=== PATIENT | female | born 1980 | race Caucasian/White ===

== ENCOUNTER 2021-03-19 23:57 | Emergency (ER) | payer OTHER ==
[~2021-03-19 23:57] MED LIST: BENTYL10 MG PO; BRINTELLIX10 MG PO; CYMBALTA 30MG C30 MG PO; FEVERFEW EXTRACT1 GM PO; FLONASE ALLER15.8 ML; MAXALT10 MG PO; PHENERGAN25 M1 PO; TROKENDI XR200 MG PO; VENTOLIN HFA IN18 GM INH; ZOFRAN8 MG PO; ZYRTEC10 MG PO
[2021-03-20 00:42] LABS: BASOPHIL 0.8 % (0-2); EOSINOPHIL 3.2 % (0-5); HCT 40.6 % (37.0-47.0); HGB 13.4 g/dl (12.5-16.0); LYMPHOCYTE 19.7 % (15-48); MCH 31.3 pg (25.0-31.0); MCV 94.9 fL (78.0-100.0); MONOCYTE 10.1 % (0-12); MPV 10.3 fL (6.0-9.5); NEUTROPHIL 65.9 % (41-80); NRBC 0; PLT 289 K/uL (150-400); RBC 4.28 M/uL (4.20-5.40); WBC 11.7 K/uL (4.0-10.5)
[2021-03-20 01:02] LABS: ALBUMIN 3.5 g/dL (3.4-5.0); BILIRUBIN - TOTAL 0.2 mg/dL (0.2-1.0); BUN/CREAT RATIO (CALC) 21.3 RATIO; CREATININE 0.89 mg/dL (0.51-0.95); GLOBULIN (CALCULATION) 3.5 g/dL; POTASSIUM 3.6 mmol/L (3.5-5.1)
[2021-03-20 02:03] LABS: BILIRUBIN NEGATIVE (NEGATIVE); BLOOD 3+ Ery/uL (NEGATIVE); CLARITY CLEAR (CLEAR); COLOR YELLOW (YELLOW); GLUCOSE (U) NORMAL (NORMAL); LEUKOCYTES NEGATIVE Leu/uL (NEGATIVE); NITRITE NEGATIVE (NEGATIVE); PROTEIN NEGATIVE (NEGATIVE); UROBILINOGEN 0.2 mg/dL (0.2-1.0)
[2021-03-20 02:10] LABS: CALCIUM OXALATE CRYSTALS MODERATE; URINARY RBC TNTC
[2021-03-20 02:11] LABS: AMORPHOUS URATES CRYSTALS MODERATE
[2021-03-20 02:12] LABS: BACTERIA TRACE
[2021-03-20 02:13] LABS: URINARY WBC RARE
[2021-03-20] MEDS ORDERED: ONDANSETRON ODT4 MG PO (04:10)
[2021-03-20] MEDS ORDERED: NAPROXEN500 MG PO (04:10)
[2021-03-20] MEDS ORDERED: FLOMAX0.4 MG PO (04:10)
[2021-03-20] MEDS ORDERED: PERCOCET 5-3251 EACH PO (04:10)
== END 2021-03-20 04:32 | disposition home or self-care (01) ==
LOC: FER 23:57
PROVIDERS: Internal Medicine
DX: N13.2 Hydronephrosis with renal and ureteral calculous obstruction (principal); Z88.1 Allergy status to other antibiotic agents
CPT/HCPCS: 36415; 80053; 81001; 83690; 85025; J1170; J2405; J2550; J7030